=== PATIENT | female | born 1995 | race Caucasian/White ===

== ENCOUNTER 2024-10-09 09:12 | Outpatient (REF) | payer OTHER, SELFPAY ==
--- NOTE | ~2024-10-09 | MR_ITS ---
CLINICAL HISTORY: MIGRAINE W O AURA MR Brain without gadolinium Comparison: None Findings: No restricted diffusion. No intracranial mass or hemorrhage. No midline shift. No hydrocephalus. Vascular flow voids are intact. Orbital contents are unremarkable. The sinuses and mastoid air cells are clear. No focal bone lesion. IMPRESSION: Unremarkable brain MRI. This document has been electronically signed by: Cassia Ferrer MD on 10/10/2024 11:12:46
--- OUTSIDE RECORDS SUMMARY | 2024-10-09 09:21 | XMS_ITS | Clinical Summary ---
Author Organization Formerly [facility] Address [address] [place] [address] Care Team Providers Care Tare Man Name Role Phone Ramos Escobar MD Primary Care Provider [phone] Allergies No known active allergies Medications Medication Sig Dispensed Refills Start Date End Date Status topiramate (TOPAMAX) 25 MG tablet Take 25 mg by mouth. 06/19/2024 Active terbinafine (LamiSIL) 250 MG tablet Take 250 mg by mouth. 07/23/2024 Active rizatriptan (MAXALT) 10 MG tablet TAKE 1 TABLET BY MOUTH AT ONSET OF A MIGRAINE. MAY REPEAT IN 2 HOURS IF NEEDED 09/05/2024 Active Sprintec 28 0.25-35 MG-MCG per tablet Take 1 tablet by mouth. 04/25/2024 Active ondansetron (ZOFRAN) 8 MG tablet Take 8 mg by mouth 3 times daily (every 8 hours) as needed for nausea or vomiting. Active Active Problems Problem Noted Date Diagnosed Date History of ovarian cyst 09/06/2024 Migraine 04/23/2022 Tobacco use disorder 06/02/2018 Thyroid disorder 12/09/2016 Encounters Date Type Department Care Team Description 09/06/2024 9:00 AM EST Clinical Support [facility] [address] [phone] Mook Graham MD Other abnormal auditory perceptions, bilateral (Primary Dx); Eczema of external ear, bilateral 08/31/2024 8:30 AM EST Clinical Support [facility] [address] [phone] Radha Banegas Au.D Other abnormal auditory perceptions, bilateral (Primary Dx) 07/11/2024 Orders Only [facility] [address] [place] [phone] ProviderAsmita MD from Last 3 Months Immunizations Name Administration Dates Next Due Tdap 05/31/2018 Family History Medical History Relation Name Comments Migraines Maternal Aunt Cancer Maternal Grandmother Thyroid disease Mother Cancer Paternal Grandmother Relation Name Status Comments Maternal Aunt Maternal Grandmother Mother Paternal Grandmother Social History Tobacco Use Types Packs/Day Years Used Date Smoking Tobacco: Never Passive Smoke Exposure: Never Smokeless Tobacco: Never Alcohol Use Standard Drinks/Week Comments Not Currently 0 (1 standard drink = 0.6 oz pur e alcohol) Sex and Gender Information Value Date Recorded Sex Assigned at Female 08/30/2024 12:31 PM EST Gender Identity Female 08/30/2024 12:31 PM EST Sexual Orientation Choose not to disclose 2024 12:31 PM EST Last Filed Vital Signs Vital Sign Reading Time Taken Comments Blood Pressure - - Pulse - - Temperature - - Respiratory Rate - - Oxygen Saturation - - Inhaled Oxygen Concentration - - Weight 72.6 kg (160 lb) 09/06/2024 8:36 AM EST Height 157.5 cm (5' 2 ) 09/06/2024 8:36 AM EST Body Mass Index 29.26 09/06/2024 8:36 AM EST Plan of Treatment Health Maintenance Due Date Last Done Comments Hepatitis C Virus Screening 1995 HIV Screening 2008 Hepatitis B Vaccines (1 of 3 - 19+ 3-dose series) 2014 Pap Smear (Ages 21-65) 2016 Influenza Vaccine 03/23/2024 COVID-19 Vaccine ( - 2023-2 5 season) 2024 DTaP/Tdap/Td Vaccines (2 - T d or Tdap) 05/31/2028 05/31/2018 HPV Vaccines Aged Out No longer eligi ble based on patient's age to complete this topic Pneumococcal Vaccine: Pediat sherry (0-5 Years) and At-Risk Patients (6 to 49 Years) Aged Out No longer eligible b ased on patient's age to complete this topic Procedures Procedure Name Priority Date/Time Associated Diagnosis Comments PURE TONE AUDIOMETRY, AIR & BONE Routine 08/31/2024 8:30 AM EST Other abnormal auditory perceptions, bilateral HX OUTSIDE ORDER Routine 07/11/2024 3:30 PM EST from Last 3 Months Results * PURE TONE AUDIOMETRY, AIR & BONE (08/31/2024 8:30 AM EST) Narrative Radha Banegas Au.D - 08/31/2024 8:30 AM EST Daniel Quick ? 08/31/2024 10:04 AM Mook Graham MD AMB ORDERABLE PERFOR ROBERT * OUTSIDE ORDER (07/11/2024 3:30 PM EST) External Provider MD HARVEY AMB PROCEDURES from Last 3 Months Care Teams Tare Man Relationship Specialty Start Date End Date Ramos Escobar MD [address] [place] [address] PCP - General Internal Medicine 09/06/24
--- OUTSIDE RECORDS SUMMARY | 2024-10-09 09:21 | XMS_ITS ---
Author Name [facility] Organization Unknown History of Medication Use Medication Directions Dispensed Refills Start Date End Date Stat us rizatriptan (MAXALT) 10 MG tablet TAKE 1 TABLET BY MOUTH AT ONSET OF A MIGRAINE. MAY REPEAT IN 2 HOURS IF NEEDED 09/05/2024 active Problems Problem Status Onset Date Problem Type Date of Resoluti on Source History of ovarian cyst active 2024-09-06 ProblemAct [facility] Other abnormal auditory perceptions, bilateral active EncounterDiagnosisAct [facility] Migraine active 2022-04-23 ProblemAct [facility] Eczema of external ear, bilateral active EncounterDiagnosisAct [facility] T Tobacco use disorder active 2018-06-02 ProblemAct [facility] Thyroid disorder active 2016-12-09 ProblemAct [facility] Immunizations Vaccine Date Source Lot Number Status Tdap 05/31/2018 [facility] [id number] completed
--- OUTSIDE RECORDS SUMMARY | 2024-10-09 09:21 | XMS_ITS | Clinical Summary ---
Author Organization [facility] Address [address] [place] [address] Care Team Providers Care Paper Goods Machine Operator Name Role Phone Unavailable Primary Care Provider Unavailabl e Allergies No known active allergies Social History Tobacco Use Types Packs/Day Years Used Date Smoking Tobacco: Never Assessed Comments Unknown Sex and Gender Information Value Date Recorded Sex Assigned at Not on file Legal Sex Female 7:34 AM EDT Gender Identity Not on file Sexual Orientation Not on file Last Filed Vital Signs Vital Sign Reading Time Taken Comments Blood Pressure - - Pulse 93 11/08/2020 5:21 PM EDT Temperature 36.1 ??C (97 ??F) 11/08/2020 5:21 PM EDT Respiratory Rate - - Oxygen Saturation 98% 11/08/2020 5:21 PM EDT Inhaled Oxygen Concentration - - Weight - - Height - - Body Mass Index - - Plan of Treatment Health Maintenance Due Date Last Done Comments Depression: Screening Annual ly using PHQ-2/9 in Adults 18 yrs or above (or HM Modifier)([facility]) 2013 Hepatitis C Virus Infection in Adolescents and Adults: Screening (or Modifier) ([facility]) 2013 SDOH Screening Reminder: Helen ingram for all adults ([facility]) 2013 Tobacco Smoking Cessation: i n Adults excluding Women: Behavioral and Pharmacotherapy Interventions ([facility]) 2013 DTaP/Tdap/Td Vaccines ([facility]) (1 - Tdap) 2014 Lipid Screening: Once for Wo men aged 20 to 45 yrs ([facility]) 2015 Cervical Cancer Screenin 1-65 yrs of age (or Modifier) 2016 Cervical Cancer Screening: P ap every 3 yrs pts age 21-65 2016 Cervical Cancer: Pap Screeni ng with Modifier timing ([facility]) 2016 Cervical Cancer: hrHPV alone or with cotesting Pap for Pts 30-65yrs screening every 5yrs ([facility]) 2016 Flu Vaccination: Yearly for ages 18mos through 64 years (or Modifier)([facility]) 03/23/2024 COVID-19 Vaccine Screening: Initial Series and Booster Status ([facility]) (2023- season) 2024 Zoster/Shingles Vaccine Seri es Screening: Adults aged 18+ yrs (or HM Modifiers)([facility]) (1 of 2) 2045 Pneumococcal Vaccination Scr eening: Pts 0-19 & 19-64 yrs of age ([facility]) Aged Out No longer eligible based on patient's age to complete this topic [employer] Not on file [place] [address] [place] [address] PLAN
--- OUTSIDE RECORDS SUMMARY | 2024-10-09 09:21 | XMS_ITS | Clinical Summary ---
Author Organization [address] [facility] Address [address] [place], [place] [address] [address] Phone Care Team Providers Care Voucher Clerk Name Role Phone Ramos Escobar MD Primary Care Provider [phone] Allergies No known active allergies Medications norgestimate-eth inyl estradioL (ORTHO-CYCLEN) 0.25-35 mg-mcg per tablet Take 1 Tablet by mouth daily. 11/30/19 23 Active rizatriptan (MAXALT) 10 mg tablet TAKE 1 TABLET BY MOUTH AT ONSET OF A MIGRAINE. MAY REPEAT IN 2 HOURS IF NEEDED 9 tablet 1 09/05/19 25 Active propranoloL (INDERAL) 10 mg tablet Take 1 tablet (10 mg total) by mouth 2 (two) times a day. Active betamethasone dipropionate (DIPROSONE) 0.05 % cream Apply topically 2 (two) times a day. 09/06/19 25 Active fluocinolone (DERMA-SMOOTHE) 0.01 % external oil Apply topically 2 (two) times a day. 09/06/19 25 Active doxycycline (MONODOX) 50 mg capsule Take 1 capsule (50 mg total) by mouth 2 (two) times a day. 09/27/19 25 Active metroNIDAZOLE (METROCREAM) 0.75 % cream Apply topically 2 (two) times a day. 09/06/19 25 Active tacrolimus (PROTOPIC) 0.1 % ointment Apply topically 2 (two) times a day. 09/06/19 25 Active ketoconazole (NIZORAL) 2 % shampoo Apply topically 1 (one) time per week. 08/27/19 25 Active topiramate (TOPAMAX) 25 mg tablet Take 2 Tablets by mouth daily. 12/10/19 23 025 Discontinued triamcinolone (KENALOG) 0.025 % cream APPLY TOPICALLY TWICE DAILY TO AFFECTED AREA UNTIL RESOLUTION 30 g 08/15/20 24 025 Discontinued Active Problems Problem Noted Date Diagnosed Date Rosacea 09/28/2024 Eczema 09/28/2024 Migraine without status migrainosus, not intract able 04/23/2022 Tobacco use disorder 06/02/2018 Thyroid disorder 12/09/2016 Encounters Date Type Department Care Team Description 09/28/2024 1:00 PM EST Office Visit Internal Communications Intern - [address] [address] Murali Noble PA Screening-pulmonary TB (Primary Dx); Other migraine without status migrainosus, not intractable; Rosacea; Eczema, unspecified type 08/31/2024 Telephone Pediatrics - [address] [address] Ramos Escobar MD Forms/questionnaires (FMLA, PFML and [employer] PFML) 08/30/2024 2:45 PM EST Office Visit [address] [address] Ramos Escobar MD Asymptomatic microscopic hematuria (Primary Dx); Frequent UTI 08/04/2024 Telephone Internal Medicine - [address] [address] Ramos Escobar MD Blood in Urine from Last 3 Months Immunizations Name Administration Dates Next Due Tdap Tetanus diptheria acell ular pertussis (Boostrix; Adacel) 7yo and older 05/31/2018 Surgical History Surgery Date Site/Laterality Comments OTHER SURGICAL HISTORY PROCEDURE: DENIES PREVIOUS SURGERY Medical History Medical History Date Comments Thyroid disorder 12/09/2016 DX:Thyroid diso rder History of anemia 12/09/2016 DX:History of anemia Family History Medical History Relation Name Comments Alcohol/Drug Father Prostate cancer Maternal Grandfather Mental illness Mother Thyroid disease Mother No Known Problems Sister Breast cancer Neg Hx Relation Name Status Comments Father Alive Maternal Grandfather Mother Alive Sister Alive Social History Tobacco Use Types Packs/Day Years Used Date Smoking Tobacco: Some Days Cigarettes Last attempted to quit: 10/12/2019 Smokeless Tobacco: Never Tobacco Cessation:Ready to Q uit: Not Asked; Counseling Given: Not Answered Alcohol Use Standard Drinks/Week Comments Yes 0 (1 standard drink = 0.6 oz pur e alcohol) Comments No Sex and Gender Information Value Date Recorded Sex Assigned at Not on file Legal Sex Female 2:42 AM EST Gender Identity Not on file Sexual Orientation Not on file Obstetrics History Last Filed Vital Signs Vital Sign Reading Time Taken Comments Blood Pressure 102/74 09/28/2024 12:52 PM EST Pulse 93 08/30/2024 2:36 PM EST Temperature - - Respiratory Rate - - Oxygen Saturation - - Inhaled Oxygen Concentration - - Weight 73.9 kg (163 lb) 09/28/2024 12:52 PM EST Height 157.5 cm (5' 2 ) 08/30/2024 2:36 PM EST Body Mass Index 29.81 08/30/2024 2:36 PM EST Plan of Treatment Upcoming Encounters Date Type Department Care Team (Late st Contact Info) Description 10/26/2024 4:00 PM EST Office Visit Internal Communications Intern - [address] [place] [address] Murali Noble PA [address] [place] [address] Health Maintenance Due Date Last Done Comments COVID-19 Vaccine (#1) 2000 Hepatitis B Vaccines (1 of 3 - 19+ 3-dose series) 2014 Pneumococcal Vaccine: Pediatrics (0 to 5 Years) and At-Risk Patients (6 to 64 Years) (1 of 2 - PCV) 2014 Depression Screening 08/02/2022 HIV Screening 08/02/2022 Hepatitis C Screening 08/02/2022 Social Influencers of Health Screening 08/02/2022 Influenza Vaccine (#1) 2024 Cervical Cancer Screening: P ap Smear 10/08/2025 10/08/2022, 10/08/2022 DTaP,Tdap,and Td Vaccines (2 - Td or Tdap) 05/31/2028 05/31/2018 Cholesterol Screening (Lipid Panel) 09/28/2029 09/28/2024, 03/31/2023 HIB Vaccines Aged Out No longer eligi ble based on patient's age to complete this topic HPV Vaccines Aged Out No longer eligi ble based on patient's age to complete this topic Hepatitis A Vaccines Aged Out No long er eligible based on patient's age to complete this topic IPV Vaccines Aged Out No longer eligi ble based on patient's age to complete this topic MMR Vaccines Aged Out No longer eligi ble based on patient's age to complete this topic Meningococcal ACWY Vaccine Aged Out N o longer eligible based on patient's age to complete this topic Meningococcal B Vacine Aged Out No lo nger eligible based on patient's age to complete this topic RSV Immunization Patients Under 20 months Aged Out No longer eligible b ased on patient's age to complete this topic Varicella Vaccines Aged Out No longer eligible based on patient's age to complete this topic Procedures Procedure Name Priority Date/Time Associated Diagnosis Comments INTERFERON GAMMA INTERPRETATION Routine 09/28/2024 1:25 PM EST Screening-pulmonary TB INTERFERON GAMMA ANTIGEN 2 Routine 09/28/2024 1:25 PM EST Screening-pulmonary TB INTERFERON GAMMA ANTIGEN 1 Routine 09/28/2024 1:25 PM EST Screening-pulmonary TB INTERFERON GAMMA MITOGEN Routine 09/28/2024 1:25 PM EST Screening-pulmonary TB INTERFERON GAMMA NIL Routine 09/28/2024 1:25 PM EST Screening-pulmonary TB CBC WITH AUTO DIFFERENTIAL Routine 09/28/2024 1:25 PM EST Other migraine without status migrainosus, not intractable INTERFERON GAMMA FOR TB, QUALITATIVE Routine 09/28/2024 1:25 PM EST Screening-pulmonary TB THYROID STIMULATING HORMONE WITH REFLEX TO FREE T4 AND FREE T3 Routine 09/28/2024 1:25 PM EST Other migraine without status migrainosus, not intractable CBC AND DIFFERENTIAL Routine 09/28/2024 1:25 PM EST Other migraine without status migrainosus, not intractable LIPID PANEL WITH REFLEX TO DIRECT LDL Routine 09/28/2024 1:25 PM EST Other migraine without status migrainosus, not intractable COMPREHENSIVE METABOLIC PANEL Routine 09/28/2024 1:25 PM EST Other migraine without status migrainosus, not intractable DURNO URINE CULTURE TUBE Routine 08/30/2024 3:13 PM EST Asymptomatic microscopic hematuria URINALYSIS WITH REFLEX MICROSCOPIC AND CULTURE Routine 08/30/2024 3:13 PM EST Asymptomatic microscopic hematuria URINALYSIS WITH REFLEX MICROSCOPIC AND CULTURE Routine 08/30/2024 3:13 PM EST Asymptomatic microscopic hematuria HM HPV Routine 10/08/2022 from Last 3 Months or Most Recently Relevant to Health Maintenance Results * Interferon gamma interpretation (09/28/2024 1:25 PM EST) Quantiferon Plus Interpretation Negative Negative LAB CHEMISTRY METHOD 09/30/2024 10:58 AM EST [facility] Blood Venous blood specimen / Unknown Venipuncture / Unknown 09/28/2024 1:25 PM EST 09/28/2024 1:25 PM EST us Murali BOLES LAB BLOOD ORDERABLES Fi nal Result [facility]) [facility] [address] [place] [address], * Interferon gamma antigen 2 (09/28/2024 1:25 PM EST) Blood Venous blood specimen / Unknown Venipuncture / Unknown 09/28/2024 1:25 PM EST 09/28/2024 1:25 PM EST Murali BOLES LAB BLOOD ORDERABLES Fi nal Result Performing Organization Address City/[facility]/ZIP Co de Phone Number [facility] [address] [place] [address], [place] [phone] * Inteferon gamma antigen 1 (09/28/2024 1:25 PM EST) Blood Venous blood specimen / Unknown Venipuncture / Unknown 09/28/2024 1:25 PM EST 09/28/2024 1:25 PM EST Murali BOLES LAB BLOOD ORDERABLES Fi nal Result Performing Organization Address [facility]/[place] Co de Phone Number [facility] [address] [place] [address], [place] [phone] * Interferon gamma mitogen (09/28/2024 1:25 PM EST) Blood Venous blood specimen / Unknown Venipuncture / Unknown 09/28/2024 1:25 PM EST 09/28/2024 1:25 PM EST Murali BOLES LAB BLOOD ORDERABLES Fi nal Result Performing Organization Address [facility]/[place] Co de Phone Number [facility] [address] [place] [address], [place] [phone] * Interferon gamma NIL (09/28/2024 1:25 PM EST) Blood Venous blood specimen / Unknown Venipuncture / Unknown 09/28/2024 1:25 PM EST 09/28/2024 1:25 PM EST Murali BOLES LAB BLOOD ORDERABLES Fi nal Result Performing Organization Address [facility]/[place] Co de Phone Number [facility] [address] [place] [address], [place] [phone] * Thyroid stimulating hormone with reflex to free t4 and free t3 (09/28/2024 1:25 PM EST) TSH 1.83 0.40 - 4.00 mcIU/mL LAB CHEMISTRY METHOD 09/28/2024 6:48 PM EST [facility] Blood Venous blood specimen / Unknown Venipuncture / Unknown 09/28/2024 1:25 PM EST 09/28/2024 1:25 PM EST Murali BOLES LAB BLOOD ORDERABLES Fi nal Result [facility] [address] [place] [address], [place] [phone] * Lipid panel with reflex to direct LDL (09/28/2024 1:25 PM EST) Cholesterol 170 0 - 200 mg/dL LAB CHEMISTRY METHOD 09/28/2024 6:40 PM [facility] Triglycerides 112 0 - 150 mg/dL LAB CHEMISTRY METHOD 09/28/2024 6:40 PM [facility] HDL 57 >=40 mg/dL LAB CHEMISTRY METHOD 09/28/2024 6:40 PM [facility] LDL Calculated 91 0 - 100 mg/dL LAB CHEMISTRY METHOD 09/28/2024 6:40 PM [facility] VLDL Cholesterol Rom 22.4 mg/dL LAB CHEMISTRY METHOD 09/28/2024 6:40 PM [facility] Non HDL Chol. (LDL+VLDL) 113 <145 mg/dL LAB CHEMISTRY METHOD 09/28/2024 6:40 PM [facility] Chol/HDL Ratio 3.0 0.0 - 4.4 LAB CHEMISTRY METHOD 09/28/2024 6:40 PM [facility] Blood Venous blood specimen / Unknown Venipuncture / Unknown 09/28/2024 1:25 PM EST 09/28/2024 1:25 PM EST us Murali BOLES LAB BLOOD ORDERABLES Fi nal Result [facility] [address] [place] [address], * (ABNORMAL) CBC auto differential (09/28/2024 1:25 PM EST) WBC 8.0 4.8 - 10.8 K/mcL LAB HEMETOLOGY METHOD 09/28/2024 6:48 PM EST [facility] RBC 4.80 3.80 - 4.80 M/mcL LAB HEMETOLOGY METHOD 09/28/2024 6:48 PM [facility] Hemoglobin 13.3 11.5 - 16.0 g/dL LAB HEMETOLOGY METHOD 09/28/2024 6:48 PM [facility] Hematocrit 41.7 35.0 - 47.0 % LAB HEMETOLOGY METHOD 09/28/2024 6:48 PM EST [facility] MCV 87.1 79.0 - 98.0 FL LAB HEMETOLOGY METHOD 09/28/2024 6:48 PM [facility] MCH 27.8 27.0 - 32.0 pcg LAB HEMETOLOGY METHOD 09/28/2024 6:48 PM [facility] MCHC 31.9(L) 32.0 - 37.0 g/dL LAB HEMETOLOGY METHOD 09/28/2024 6:48 PM [facility] RDW 12.9 11.0 - 15.0 % LAB HEMETOLOGY METHOD 09/28/2024 6:48 PM [facility] Platelets 357 130 - 400 K/mcL LAB HEMETOLOGY METHOD 09/28/2024 6:48 PM [facility] MPV 9.8 7.0 - 11.0 FL LAB HEMETOLOGY METHOD 09/28/2024 6:48 PM [facility] NRBC 0.0 <1.0 % LAB HEMETOLOGY METHOD 09/28/2024 6:48 PM [facility] NRBC Absolute 0.00 <0.10 K/mcL LAB HEMETOLOGY METHOD 09/28/2024 6:48 PM [facility] Neutrophils Relative 48.9 % LAB HEMETOLOGY METHOD 09/28/2024 6:48 PM [facility] Lymphocytes Relative 35.9 % LAB HEMETOLOGY METHOD 09/28/2024 6:48 PM [facility] Monocytes Relative 13.0 % LAB HEMETOLOGY METHOD 09/28/2024 6:48 PM [facility] Eosinophils Relative 1.6 % LAB HEMETOLOGY METHOD 09/28/2024 6:48 PM [facility] Basophils Relative 0.5 % LAB HEMETOLOGY METHOD 09/28/2024 6:48 PM [facility] Immature Granulocytes Relative 0.1 % LAB HEMETOLOGY METHOD 09/28/2024 6:48 PM [facility] Neutrophils Absolute 3.93 1.50 - 7.00 K/mcL LAB HEMETOLOGY METHOD 09/28/2024 6:48 PM [facility] Lymphocytes Absolute 2.88 1.00 - 5.00 K/mcL LAB HEMETOLOGY METHOD 09/28/2024 6:48 PM [facility] Monocytes Absolute 1.04(H) 0.20 - 1.00 K/mcL LAB HEMETOLOGY METHOD 09/28/2024 6:48 PM [facility] Eosinophils Absolute 0.13 0.00 - 0.50 K/mcL LAB HEMETOLOGY METHOD 09/28/2024 6:48 PM [facility] Basophils Absolute 0.04 0.00 - 0.20 K/mcL LAB HEMETOLOGY METHOD 09/28/2024 6:48 PM [facility] Immature Granulocytes Absolute 0.01 0.00 - 0.03 K/mcL LAB HEMETOLOGY METHOD 09/28/2024 6:48 PM [facility] Blood Venous blood specimen / Unknown Venipuncture / Unknown 09/28/2024 1:25 PM EST 09/28/2024 1:25 PM EST us Murali BOLES LAB BLOOD ORDERABLES Fi nal Result [facility] [address] [place] [address], * Comprehensive metabolic panel (09/28/2024 1:25 PM EST) Sodium 136 133 - 145 mmol/L LAB CHEMISTRY METHOD 09/28/2024 6:40 PM [facility] Potassium 4.4 3.5 - 5.5 mmol/L LAB CHEMISTRY METHOD 09/28/2024 6:40 PM [facility] Chloride 103 96 - 110 mmol/L LAB CHEMISTRY METHOD 09/28/2024 6:40 PM [facility] CO2 28 21 - 32 mmol/L LAB CHEMISTRY METHOD 09/28/2024 6:40 PM [facility] Anion Gap 5 3 - 11 LAB CHEMISTRY METHOD 09/28/2024 6:40 PM [facility] Glucose 87 70 - 100 mg/dL LAB CHEMISTRY METHOD 09/28/2024 6:40 PM [facility] BUN 14 5 - 25 mg/dL LAB CHEMISTRY METHOD 09/28/2024 6:40 PM [facility] Creatinine 0.62 0.50 - 1.10 mg/dL LAB CHEMISTRY METHOD 09/28/2024 6:40 PM [facility] eGFR 124 >=60 mL/min/1. 73m2 LAB CHEMISTRY METHOD 09/28/2024 6:40 PM [facility] Comment:Calculation based on the??Chronic Kidney Disease Epidemiology Collaboration (CKD-EPI) equation refit??without adjustment for race. BUN/Creatinine Ratio 22.6 LAB CHEMISTRY METHOD 09/28/2024 6:40 PM [facility] Calcium 9.6 8.5 - 10.5 mg/dL LAB CHEMISTRY METHOD 09/28/2024 6:40 PM [facility] AST (SGOT) 14 10 - 42 unit/L LAB CHEMISTRY METHOD 09/28/2024 6:40 PM [facility] ALT (SGPT) 20 10 - 60 unit/L LAB CHEMISTRY METHOD 09/28/2024 6:40 PM [facility] Alkaline Phosphatase 52 42 - 121 unit/L LAB CHEMISTRY METHOD 09/28/2024 6:40 PM [facility] Total Protein 6.8 6.0 - 8.0 g/dL LAB CHEMISTRY METHOD 09/28/2024 6:40 PM [facility] Albumin 3.8 3.2 - 5.0 g/dL LAB CHEMISTRY METHOD 09/28/2024 6:40 PM [facility] Total Bilirubin 0.3 0.0 - 1.4 mg/dL LAB CHEMISTRY METHOD 09/28/2024 6:40 PM [facility] Blood Venous blood specimen / Unknown Venipuncture / Unknown 09/28/2024 1:25 PM EST 09/28/2024 1:25 PM EST us Murali BOLES LAB BLOOD ORDERABLES Fi nal Result [facility] [address] [place] [address], * Urinalysis with reflex microscopic and culture (08/30/2024 3:13 PM EST) Specific [place] Urine 1.015 1.003 - 1.030 LAB URINALYSIS - AUTOMATED METHOD 08/30/2024 7:22 PM [facility] pH, Urine 7.0 5.0 - 8.0 pH LAB URINALYSIS - AUTOMATED METHOD 08/30/2024 7:22 PM [facility] Leukocytes, Urine Negative Negative LAB URINALYSIS - AUTOMATED METHOD 08/30/2024 7:22 PM [facility] Nitrite, Urine Negative Negative LAB URINALYSIS - AUTOMATED METHOD 08/30/2024 7:22 PM [facility] Protein, Urine Negative <=Trace mg/dL LAB URINALYSIS - AUTOMATED METHOD 08/30/2024 7:22 PM [facility] Glucose, Urine Negative Negative mg/dL LAB URINALYSIS - AUTOMATED METHOD 08/30/2024 7:22 PM [facility] Ketones, Urine Negative Negative mg/dL LAB URINALYSIS - AUTOMATED METHOD 08/30/2024 7:22 PM [facility] Urobilinogen, Urine 0.2 0.2 - 1.0 mg/dL LAB URINALYSIS - AUTOMATED METHOD 08/30/2024 7:22 PM [facility] Bilirubin, Urine Negative Negative LAB URINALYSIS - AUTOMATED METHOD 08/30/2024 7:22 PM [facility] Blood, Urine Negative Negative LAB URINALYSIS - AUTOMATED METHOD 08/30/2024 7:22 PM [facility] Urine Urine specimen obtained by clean catch procedure / Unknown Non-blood Collection / Unknown 08/30/2024 3:13 PM EST 08/30/2024 3:13 PM EST us Ramos Escobar MD LAB URINE ORDERABLES Final Resu lt [facility] [address] [place] [address], * Duron urine culture tube (08/30/2024 3:13 PM EST) [facility] Extra Tube Hold for add-ons. 08/30/2024 7:01 PM EST [facility] Comment:Auto resulted. Urine Urine specimen obtained by clean catch procedure / Unknown Non-blood Collection / Unknown 08/30/2024 3:13 PM EST 08/30/2024 3:13 PM EST Ramos Escobar MD LAB URINE ORDERABLES Final Resu lt [facility] [address] [place] [address], * Cervical Cancer Screening: HPV (10/08/2022) [facility] Cervical Cancer Screening: HPV abstracted, no interpretation Historical Provider HEALTH MAINTENANCE Final Result from Last 3 Months or Most Recently Relevant to Health Maintenance Insurance [facility] [place] [address] [place] [phone] Care Teams Voucher Clerk Relationship Specialty Start Date End Date Ramos Escobar MD [facility] [place] [address] PCP - General Internal Medicine 11/03/21
== END 2024-10-09 09:13 | disposition home or self-care (01) ==
LOC: HO.MRI 09:12
PROVIDERS: Visit Provider Registered Nurse
DX: G43.009 Migraine without aura, not intractable, without status migrainosus (principal)
CPT/HCPCS: 70551

== ENCOUNTER → 2024-10-09 09:30 | Outpatient (BNV) | payer OTHER, SELFPAY | PROVIDERS: Visit Provider Radiology Diagnostic Radiology | DX: G43.009 Migraine without aura, not intractable, without status migrainosus (principal) | CPT/HCPCS: 70551 ==

== ENCOUNTER 2025-07-18 08:28 | Outpatient (AMB) | payer OTHER, SELFPAY ==
--- OUTSIDE RECORDS SUMMARY | 2025-05-04 14:00 | XMS_ITS ---
Author Organization [facility] Address [address] [place] [address] Care Team Providers Care Wireless Network Engineer Name Role Phone Provider, Chris Primary Care Provider REASON FOR VISIT Urgent care Encounters Encounter Location Date Provider Diagnosis [facility] [address] [place] [address] 05/04/2025 [facility] Plan Of Treatment No Information Progress Notes * Yennifer HUGGINSB:[birth year] (30 yo F)Acc No.[id number]:05/04/2025 IMPORT Patient: Jayden JADErina Appointment Provider: Sharon padilla Provider :1995 A ge:30 Y S ex:Female Date:05/04/2025 Address:[address] [place], [place] [id number] Subjective: * Chief Complaints: * 1 . Urgent care. * Medical History: Objective: * Vitals: Assessment: Plan: * Treatment: * Billing Information: * Visit Code: * Procedure Codes: * Electronic signature of Yahaira x Provider on 07/18/2025 at 08:52 AM EST Sign off status: Pending * Appointment Provider: Sharon padilla Provider Date: 0 05/04/2025 Generated for Vivi sadler/Leyda/Emaniitting on: 09/17/2024 08:52 AM EST
--- NOTE | 2025-07-18 08:49 | A.OFFVIS_ITS ---
Intake Visit Reasons: follow up Allergies No Known Allergies Allergy (Verified 07/18/25 08:53) Medication List - Last Reconciled 07/18/25 by Colleen Garibay CNP drospirenone (contraceptive) (Slynd) 1 tab PO DAILY ondansetron 8 mg PO DAILY propranolol 20 mg PO DAILY 90 days rizatriptan take 1 tab at onset of headache; if no relief may repeat 1 tab after at least 4 hrs; max = 2 tabs/24 hr PO 30 days HPI Comments Details: 30-year-old woman with migraine. She was doing okay. She started progesterone only control about a week ago and was having some more mild headaches since then. Before this, headaches were okay and she only had to use rizatriptan a few times which helped. Sleep was up and down. She has not done accupunture since the summer. She was working part- time for [employer] [facility] Medical History (Updated 07/18/25 @ 08:52 by Colleen Garibay CNP) Migraine without aura Family History (Updated 04/20/25 @ 10:30 by HALLEY Harris) Maternal Aunt Headache Review of Systems Const Denies chills, Denies daytime sleepiness, Reports difficulty sleeping, Denies fatigue, Denies fever(s), Denies frequent falls, Reports headache(s), Denies increased appetite, Denies poor appetite, Denies snoring, Denies weakness, Denies weight gain and Denies weight loss Eyes Denies loss of vision ENT Denies vertigo, Denies dizziness and Reports headache(s) Card Denies chest pain at rest, Denies chest pain with activity, Denies syncope, Denies leg edema and Denies palpitations Resp Denies snoring GI Denies constipation, Denies heartburn, Denies diarrhea and Denies nausea Denies urinary frequency, Denies urinary incontinence and Denies urinary urgency Musc Denies abnormal gait, Denies numbness and Denies tingling Skin/Breast Denies dry skin and Denies rash Neuro Denies abnormal gait, Denies vertigo, Denies dizziness, Denies syncope, Denies frequent falls, Reports headache(s), Denies lack of coordination, Denies loss of vision, Denies memory loss, Denies numbness, Denies restless legs, Denies seizure-like activity, Denies tingling, Denies paresthesias, Denies tremor(s) and Denies weakness Psych Denies anxiety, Denies depression, Denies auditory hallucinations, Denies memory loss, Denies visual hallucinations and Denies suicidal ideation Endo Denies fatigue and Denies palpitations Results Reviewed Results Reviewed: MRI brain at [facility] 09/2024: WNL Assessment & Plan Assessment & Plan (1) Migraine without aura: Code(s): G43.009 - Migraine without aura, not intractable, without status migrainosus Category: Medical Qualifiers: Status migrainosus presence: without status migrainosus Intractability: not intractable Qualified Code(s): G43.009 - Migraine without aura, not in tractable, without status migrainosus Plan: Continue propranolol 20mg 1 tablet daily. Continue rizatriptan 10mg 1 tablet as needed for migraine. Continue ondansetron 8mg 1 tablet as needed for nausea/vomiting #10 for 30 days. Follow up in 4 months or sooner as needed. Coding Level of Care Code Est Pt Level 4 (04273) Diagnoses Migraine without aura and without status migrainosus, not intractable G43.009 Status migrainosus presence: without status migrainosus Intractability: not intractable
--- OUTSIDE RECORDS SUMMARY | 2025-07-18 08:52 | XMS_ITS ---
Author Name [facility] Organization Unknown History of Medication Use Medication Directions Dispensed Refills Start Date End Date Stat us rizatriptan (MAXALT) 10 MG tablet TAKE 1 TABLET BY MOUTH AT ONSET OF A MIGRAINE. MAY REPEAT IN 2 HOURS IF NEEDED 09/05/2024 active terbinafine (LamiSIL) 250 MG tablet Take 250 mg by mouth. 07/23/2024 active topiramate (TOPAMAX) 25 MG tablet Take 25 mg by mouth. 06/19/2024 active Sprintec 28 0.25-35 MG-MCG per tablet Take 1 tablet by mouth. 04/25/2024 active ondansetron (ZOFRAN) 8 MG tablet Take 8 mg by mouth 3 times daily (every 8 hours) as needed for nausea or vomiting. active Problems Problem Status Onset Date Problem [...] Number Status Tdap 05/31/2018 HHCCT [id number] completed Encounters Encounter Type Encounter Reason Primary Diagnosis Location Date Ambulatory Ear Fullness Ear Fullness [email or web address] 09/06/2024 Ambulatory [facility] 08/31/2024 Care Team Organization Name Specialty Phone Email Start Date End [facility] 09/12/2024 11/08/2024 [facility] Ramos Escobar [facility] 09/06/2024 [email or web address] 07/11/2024
--- OUTSIDE RECORDS SUMMARY | 2025-07-18 08:52 | XMS_ITS | Clinical Summary ---
Author Organization [facility] Address [address] [place] [address] Care Team Providers Care Skin Care Therapist Name Role Phone Unavailable Primary Care Provider [...] 93 11/08/2020 5:21 PM EDT Temperature 36.1 C (97 F) 11/08/2020 5:21 PM EDT Respiratory Rate - - Oxygen Saturation 98% 11/08/2020 5:21 PM EDT Inhaled Oxygen Concentration - - Weight - - Height - - Body Mass Index - - Plan of Treatment Not on file Medical Devices Not on file Insurance [facility] [place] [address]
--- OUTSIDE RECORDS SUMMARY | 2025-07-18 08:52 | XMS_ITS | Clinical Summary ---
Author Organization [address] [facility] Address [address] [place] [phone] Phone Care Team Providers Care Asphalt Screed Operator Name Role Phone Ramos Escobar MD Primary Care Provider [phone] Allergies No known active allergies Medications propranoloL (INDERAL) 10 mg tablet Take 2 tablets (20 mg total) by mouth at bedtime. Active betamethasone dipropionate (DIPROSONE) 0.05 % cream Apply topically 2 (two) times a day. 09/06/19 25 Active fluocinolone (DERMA-SMOOTHE) 0.01 % external oil Apply topically 2 (two) times a day. 09/06/19 25 Active metroNIDAZOLE (METROCREAM) 0.75 % cream Apply topically 2 (two) times a day. 09/06/19 25 Active tacrolimus (PROTOPIC) 0.1 % ointment Apply topically 2 (two) times a day. 09/06/19 25 Active ketoconazole (NIZORAL) 2 % shampoo Apply topically 1 (one) time per week. 08/27/19 25 Active rizatriptan (MAXALT) 10 mg tablet TAKE 1 TABLET BY MOUTH AT ONSET OF A MIGRAINE. MAY REPEAT IN 2 HOURS IF NEEDED 9 tablet 1 06/01/20 25 Active clobetasoL (TEMOVATE) 0.05 % cream APPLY TO AFFECTED AREA TWICE A DAY 15 g 07/11/20 25 Active clobetasoL (TEMOVATE) 0.05 % cream Apply topically 2 (two) times a day. 15 g 06/01/20 025 Discontinued Active Problems Problem Noted Date Diagnosed Date Rosacea 09/28/2024 Eczema 09/28/2024 Migraine without status migrainosus, not intract able 04/23/2022 Tobacco use disorder 06/02/2018 Thyroid disorder 12/09/2016 Encounters Date Type Department Care Team Description 06/04/2025 Results Follow-Up Internal Medicine - [address] [place] [address] Murali Noble PA 06/01/2025 8:30 AM EDT Office Visit Internal Medicine - [address] [place] [address] Murali Noble PA PCOS (polycystic ovarian syndrome) (Primary Dx); Other migraine without status migrainosus, not intractable; Rosacea; Eczema, unspecified type from Last 3 Months Immunizations Immunization Administration Dates Next Due Tdap Tetanus diptheria acell ular pertussis (Boostrix; Adacel) 7yo and older 05/31/2018 Surgical History Surgery Date Site/Laterality Comments OTHER SURGICAL HISTORY PROCEDURE: DENIES PREVIOUS SURGERY Medical History Medical History Date Comments Thyroid disorder 12/09/2016 DX:Thyroid diso rder History of anemia 12/09/2016 DX:History of anemia Family History Medical History Relation Name Comments Alcohol/Drug Father Prostate cancer Maternal Grandfather Colon polyps Mother Mental illness Mother Thyroid disease Mother No Known Problems Sister Breast cancer Neg Hx Relation Name Status Comments Father Alive Maternal Grandfather Mother Alive Sister Alive Social History Tobacco Use Types Packs/Day Years Used Date Smoking Tobacco: Former Cigarettes 0 Q uit: 10/12/2019 Smokeless Tobacco: Never Tobacco Cessation:Counseling Given: Not Answered Comments:Quit 2021 smoking since 15 quit at 26. Was smoking ppd. Alcohol Use Standard Drinks/Week Comments Not Currently 0 (1 standard drink = 0.6 oz pur e alcohol) Housing Instability Answer Date Recorde d Are you worried that in the next 2 months you may not have stable housing? No 05/31/2025 Food Access & Nutrition Answer Date Rec orded Do you have access to a vari ety of food including fruits and vegetables? Yes 05/31/2025 Access to Healthcare Answer Date Record ed Within the last 3 months, ana cristina robles many times did you visit the emergency department for your medical care? 1 05/31/2025 Health Literacy Answer Date Recorded How often do you need to hav e someone help you when you read instructions, pamphlets, or other written material from your doctor or pharmacy? Never 05/31/2025 Caregiver: How often do you need to have someone help you when you read instructions, pamphlets, or other written material from your doctor or pharmacy? Not on file 05/31/2025 Financial Risk Answer Date Recorded How hard is it for you to pa y for the very basics like food, housing, medical care, and air conditioning / heating? Not very hard 05/31/2025 Transportation Answer Date Recorded Has the lack of transportati on kept you from meetings, work, or from getting things needed for daily living? No Has the lack of transportati on kept you from medical appointments or from getting medications? No 05/31/2025 Social Isolation Answer Date Recorded How often do you feel lonely or isolated from th ose around you? Never 05/31/2025 Food Risk Answer Date Recorded Within the past 12 months we worried whether our food would run out before we got money to buy more. Never true 05/31/2025 Within the past 12 months th e food we bought just didn't last and we didn't have money to get more. Never true 05/31/2025 Dependent Care Answer Date Recorded Do you need help finding or paying for care for your loved ones. For example, childcare provider or elderly care for an older adult? No 05/31/2025 Education Answer Date Recorded Do you think completing more education or training, like finishing a GED, going to college, or learning a trade, would be helpful for you? N/A 05/31/2025 Employment and Income Answer Date Recor ded During the last four weeks, have you been actively looking for work? No 05/31/2025 Living Situation Answer Date Recorded What is your living situation? Unrecognized valu e 05/31/2025 Comments No Sex and Gender Information Value Date Recorded Sex Assigned at Not on file Legal Sex Female 2:42 AM EST Gender Identity Not on file Sexual Orientation Not on file Obstetrics History Last Filed Vital Signs Vital Sign Reading Time Taken Comments Blood Pressure 118/70 06/01/2025 8:15 AM EDT Pulse 87 06/01/2025 8:15 AM EDT Temperature - - Respiratory Rate 16 10/26/2024 3:49 PM EST Oxygen Saturation - - Inhaled Oxygen Concentration - - Weight 75.7 kg (166 lb 12.8 oz) 06/01/2025 8:15 AM EDT Height 157.5 cm (5' 2 ) 06/01/2025 8:15 AM EDT Body Mass Index 30.51 06/01/2025 8:15 AM EDT Plan of Treatment Upcoming Encounters Date Type Department Care Team (Late st Contact Info) Description 09/10/2025 8:00 AM EST Consult Endocrinology - [place] [address] [place] [address] Manuela Pagan PA [address] [place] [address] 11/30/2025 8:00 AM EDT Office Visit Internal Medicine - [facility] [address] [place] [address] Ramos Escobar MD [address] [place] [address] Health Maintenance Due Date Last Done Comments COVID-19 Vaccine (#1) 2000 Hepatitis B Vaccines (1 of 3 - 19+ 3-dose series) 2014 HPV Vaccines (1 - 3-dose SCD M series) 2022 Influenza Vaccine (#1) 2026 Postp oned from 04/23/2025 (Patient Refused) Social Influencers of Health Screening 05/31/2026 05/31/2025 Cervical Cancer Screening: HPV 10/08/2027 10/08/2022 DTaP,Tdap,and Td Vaccines (2 - Td or Tdap) 05/31/2028 05/31/2018 Cholesterol Screening (Lipid Panel) 09/28/2029 09/28/2024, 03/31/2023 RSV Immunization Adult Patients (1 - 1-dose 75+ series) 2070 HIV Screening Completed 10/26/2024 Depression Screening Completed 05/31/2025 HIB Vaccines Aged Out No longer eligi ble based on patient's age to complete this topic Hepatitis A Vaccines Aged Out No long er eligible based on patient's age to complete this topic Hepatitis C Screening Discontinued IPV Vaccines Aged Out No longer eligi ble based on patient's age to complete this topic MMR Vaccines Aged Out No longer eligi ble based on patient's age to complete this topic Meningococcal ACWY Vaccine Aged Out N o longer eligible based on patient's age to complete this topic Meningococcal B Vaccine Aged Out No l onger eligible based on patient's age to complete this topic Pneumococcal Vaccine: Pediatrics (0 to 5 Years) and At-Risk Patients (6 to 49 [...] Procedure Name Priority Date/Time Associated Diagnosis Comments CBC WITH AUTO DIFFERENTIAL Routine 06/01/2025 9:08 AM EDT PCOS (polycystic ovarian syndrome) THYROID STIMULATING HORMONE WITH REFLEX TO FREE T4 AND FREE T3 Routine 06/01/2025 9:08 AM EDT PCOS (polycystic ovarian syndrome) CBC AND DIFFERENTIAL Routine 06/01/2025 9:08 AM EDT PCOS (polycystic ovarian syndrome) HEMOGLOBIN A1C Routine 06/01/2025 9:08 AM EDT PCOS (polycystic ovarian syndrome) HIV 1, 2 ANTIBODY, P24 ANTIGEN WITH REFLEX TO DIFFERENTIATION Routine 10/26/2024 4:25 PM EST Health maintenance examination LIPID PANEL WITH REFLEX TO DIRECT LDL Routine 09/28/2024 1:25 PM EST Other migraine without status migrainosus, not intractable HM HPV Routine 10/08/2022 from Last 3 Months or Most Recently Relevant to Health Maintenance Results * Thyroid stimulating hormone with reflex to free t4 and free t3 (06/01/2025 9:08 AM EDT) TSH 1.76 0.40 - 4.00 mcIU/mL LAB CHEMISTRY METHOD 06/01/2025 1:00 PM EDT [facility] Blood Venous blood specimen / Unknown Venipuncture / Unknown 06/01/2025 9:08 AM EDT 06/01/2025 9:08 AM EDT Murali BOLES LAB BLOOD ORDERABLES Fi nal Result [facility] [address] [place] [address], * (ABNORMAL) CBC auto differential (06/01/2025 9:08 AM EDT) [facility] WBC 7.1 4.8 - 10.8 K/mcL LAB HEMETOLOGY METHOD 06/01/2025 12:10 PM EDT [facility] RBC 5.20(H) 3.80 - 4.80 M/mcL LAB HEMETOLOGY METHOD [facility] Hemoglobin 14.5 11.5 - 16.0 g/dL LAB HEMETOLOGY METHOD 06/01/2025 12:[facility] Hematocrit 44.5 35.0 - 47.0 % LAB HEMETOLOGY METHOD 06/01/2025 12:10 PM EDT [facility] MCV 86.4 79.0 - 98.0 FL LAB HEMETOLOGY METHOD 06/01/2025 12:[facility] MCH 28.2 27.0 - 32.0 pcg LAB HEMETOLOGY METHOD 06/01/2025 12:10 PM [facility] MCHC 32.6 32.0 - 37.0 g/dL LAB HEMETOLOGY METHOD 06/01/2025 12:10 PM EDT [facility] RDW 13.3 11.0 - 15.0 % LAB HEMETOLOGY METHOD 06/01/2025 12:10 PM [facility] Platelets 338 130 - 400 K/mcL LAB HEMETOLOGY METHOD 06/01/2025 12:10 PM [facility] MPV 9.4 7.0 - 11.0 FL LAB HEMETOLOGY METHOD 06/01/2025 12:10 PM [facility] NRBC 0.0 <1.0 % LAB HEMETOLOGY METHOD 06/01/2025 12:10 PM [facility] NRBC Absolute 0.00 <0.10 K/mcL LAB HEMETOLOGY METHOD 06/01/2025 12:10 PM [facility] Neutrophils Relative 47.7 % LAB HEMETOLOGY METHOD 06/01/2025 12:10 PM [facility] Lymphocytes Relative 37.0 % LAB HEMETOLOGY METHOD 06/01/2025 12:10 PM [facility] Monocytes Relative 12.8 % LAB HEMETOLOGY METHOD 06/01/2025 12:10 PM [facility] Eosinophils Relative 1.3 % LAB HEMETOLOGY METHOD 06/01/2025 12:10 PM [facility] Basophils Relative 0.8 % LAB HEMETOLOGY METHOD 06/01/2025 12:10 PM [facility] Immature Granulocytes Relative 0.4 % LAB HEMETOLOGY METHOD 06/01/2025 12:10 PM [facility] Neutrophils Absolute 3.38 1.50 - 7.00 K/mcL LAB HEMETOLOGY METHOD 06/01/2025 12:10 PM [facility] Lymphocytes Absolute 2.63 1.00 - 5.00 K/mcL LAB HEMETOLOGY METHOD 06/01/2025 12:10 PM [facility] Monocytes Absolute 0.91 0.20 - 1.00 K/mcL LAB HEMETOLOGY METHOD 06/01/2025 12:10 PM EDT [facility] Eosinophils Absolute 0.09 0.00 - 0.50 K/[facility] LAB HEMETOLOGY METHOD 06/01/2025 12:10 PM EDT [facility] Basophils Absolute 0.06 0.00 - 0.20 K/[facility] LAB HEMETOLOGY METHOD 06/01/2025 12:10 PM EDT [facility] Immature Granulocytes Absolute 0.03 0.00 - 0.03 K/[facility] LAB HEMETOLOGY METHOD 06/01/2025 12:10 PM EDT [facility] Blood Venous blood specimen / Unknown Venipuncture / Unknown 06/01/2025 9:08 AM EDT 06/01/2025 9:08 AM EDT Murali BOLES LAB BLOOD ORDERABLES Fi nal Result [facility] [address] [place] [address], [place] [phone] * Hemoglobin A1c (06/01/2025 9:08 AM EDT) [facility] Signature Hemoglobin A1C 5.2 <6.5 % LAB CHEMISTRY METHOD 06/01/2025 1:22 PM EDT [facility] Mean Bld Glu Estim. 103 mg/dL LAB CHEMISTRY METHOD 06/01/2025 1:22 PM EDT [facility] Blood Venous blood specimen / Unknown Venipuncture / Unknown 06/01/2025 9:08 AM EDT 06/01/2025 9:08 AM EDT Murali BOLES LAB BLOOD ORDERABLES Fi nal Result [facility] [address] [place] [address], [place] [phone] * HIV 1,2 antibody, p24 antigen with reflex to differentiation (10/26/2024 4:25 PM EST) [facility] HIV Combo AB/AG Negative Negative LAB CHEMISTRY METHOD 10/26/2024 7:22 PM [facility] Blood Venous blood specimen / Unknown Venipuncture / Unknown 10/26/2024 4:25 PM EST 10/26/2024 4:25 PM EST [facility] - 10/26/2024 7:22 PM EST This assay is a 4th generation assay allowing for earlier detection of HIV infection by detecting the presence of the HIV-1 p24 antigen as well as the traditional antibodies to HIV type 1 (including group O) and type 2. Use of a 4th generation assay is the current CDC recommendation for HIV screening. Murali BOLES LAB BLOOD ORDERABLES Fi nal Result [facility] [address] [place] [address], [place] [phone] * Lipid panel with reflex to direct LDL (09/28/2024 1:25 PM EST) [facility] Cholesterol 170 0 - 200 mg/dL LAB CHEMISTRY METHOD 09/28/2024 6:40 PM [facility] Triglycerides 112 0 - 150 mg/dL LAB CHEMISTRY METHOD 09/28/2024 6:40 PM [facility] HDL 57 >=40 mg/dL LAB CHEMISTRY METHOD 09/28/2024 6:40 PM [facility] LDL Calculated 91 0 - 100 mg/dL LAB CHEMISTRY METHOD 09/28/2024 6:40 PM [facility] VLDL Cholesterol Rom 22.4 mg/dL LAB CHEMISTRY METHOD 09/28/2024 6:40 PM [facility] Non HDL Chol. (LDL+VLDL) 113 <145 mg/dL LAB CHEMISTRY METHOD 09/28/2024 6:40 PM EST [facility] Chol/HDL Ratio 3.0 0.0 - 4.4 LAB CHEMISTRY METHOD 09/28/2024 6:40 PM EST [facility] Blood Venous blood specimen / Unknown Venipuncture / Unknown 09/28/2024 1:25 PM EST 09/28/2024 1:25 PM EST Murali BOLES LAB BLOOD ORDERABLES Fi nal Result [facility] [address] [place] [address], * Cervical Cancer Screening: HPV (10/08/2022) Pathologist [facility] Cervical Cancer Screening: HPV abstracted, no interpretation Historical Provider HEALTH MAINTENANCE Final Result from Last 3 Months or Most Recently Relevant to Health Maintenance Insurance [facility] [address] [place] [phone] Care Teams Asphalt Screed Operator Relationship Specialty Start Date End Date Ramos Escobar MD [facility] [place] [address] PCP - General Internal Medicine 11/03/21
--- OUTSIDE RECORDS SUMMARY | 2025-07-18 08:52 | XMS_ITS | Encounter Summary ---
Author Organization [facility] Address [address] [place] [address] Care Team Providers Care Production Tool Engineer Name Role Phone Ramos Escobar MD Primary Care Provider [phone] Reason for Referral * Consultation (Routine) - Authorized Specialty Diagnoses / Procedures Referred By Garth vazquez Referred To Contact Endocrinology Diagnoses Cyst of right ovary Murali Noble PA [address] [place] [address] Phone: tel: fax: Endocrinology - [address] [address] Phone: tel: fax: Referral ID Status Reason Start Date Expiration Date Visits Requested Visits Authorized [id number] Authorized Specialty Services Required 06/04/2026 1 1 Encounter Details Date Type Department Care Team (Late st Contact Info) Description 06/04/2025 Results Follow-Up Internal Medicine - [address] [phone] Murali Noble PA [address] [place] [id number] Social History Tobacco Use Types Packs/Day Years Used Date Smoking Tobacco: Former Cigarettes 0 Q uit: 10/12/2019 Smokeless Tobacco: Never Comments:Quit 2021 smoking s licha 15 quit at 26. Was smoking ppd. [...] Record ed Within the last 3 months, ho w many times did you visit the emergency [...] care for your loved ones. For example, children's program coordinator or elderly care for an older adult? [...] on file Sexual Orientation Not on file documented as of this encounter Plan of Treatment Upcoming Encounters Date Type Department Care Team (Late st Contact Info) Description 09/10/2025 8:00 AM EST Consult Endocrinology - [place] [address] [place] [address] Manuela Pagan PA [address] [place] [address] 11/30/2025 8:00 AM EDT Office Visit Internal Medicine - [facility] [address] [place] [address] Ramos Escobar MD [address] [place] [address] Scheduled Referrals Name Type Priority Associated Diagnoses Order Schedule Ambulatory referral to Endocrinology Outpatient Referral Routine Cyst of right ovary 1 Occurrences starting 06/04/2025 until 06/04/2026 documented as of this encounter Visit Diagnoses Diagnosis Cyst of right ovary- Primary Other and unspecified ovarian cyst documented in this encounter Additional Health Concerns Assessment Noted Time PHQ-9 Depression Total Score: 0 05/31/20 25 10:27 AM EDT documented as of this encounter Care Teams Production Tool Engineer Relationship Specialty Start Date End Date Ramos Escobar MD [address] [place] [address] PCP - General Internal Medicine 11/03/21 documented as of this encounter
--- OUTSIDE RECORDS SUMMARY | 2025-07-18 08:52 | XMS_ITS | Patient Health Record ---
Author Organization [facility] Address [address] [place] [address] Care Team Providers Care Director [employer] Name Role Phone Provider, Chris Primary Care Provider [phone] Reason For Referral No Information Plan Of Treatment No Information
--- OUTSIDE RECORDS SUMMARY | 2025-07-18 08:52 | XMS_ITS | Clinical Summary ---
Author Organization [facility] Address [address] [place] [address] Care Team Providers Care Coffee Sampler Name Role Phone Ramos Escobar MD Primary Care Provider Unavaila ble Allergies No known active allergies Medications topiramate (TOPAMAX) 25 MG tablet Take 25 [...] Tobacco use disorder 06/02/2018 Thyroid disorder 12/09/2016 Immunizations Immunization Administration Dates Next Due Tdap 05/31/2018 Family [...] = 0.6 oz pur e alcohol) Comments Unknown Sex and Gender Information Value Date Recorded Sex Assigned at Female 08/30/2024 12:31 PM EST Legal Sex Female 11:17 AM EST Gender Identity Female 08/30/2024 12:31 PM [...] Pap Smear (Ages 21-65) 2016 Influenza Vaccine 03/23/2025 COVID-19 Vaccine (2023-2 5 season) 2025 DTaP/Tdap/Td Vaccines (2 - T d or Tdap) 05/31/2028 05/31/2018 HPV Vaccines (No Doses Required) Completed Pneumococcal Vaccine: Pediat sherry (0-5 Years) and At-Risk Patients (6 to 49 Years) Aged Out No longer eligible b ased on patient's age to complete this topic Insurance Care Teams Coffee Sampler Relationship Specialty Start Date End Date Ramos Escobar MD PCP - General Internal Medicine 09/06/24
== END 2025-07-18 09:04 | disposition home or self-care (01) ==
PROVIDERS: PCP Internal Medicine; Visit Provider Registered Nurse
DX: G43.009 Migraine without aura, not intractable, without status migrainosus (principal)
CPT/HCPCS: 99214